=== PATIENT | male | born 1970 | race Caucasian/White ===

== ENCOUNTER 2021-03-09 13:16 | Emergency (ER) | payer OTHER ==
[2021-03-09 14:15] LABS: Absolute Lymphocytes (CBC) 3.1 K/uL (0.7-4.9); Basophils % 1.2 % (0-1.3); Hematocrit 40.5 % (39.6-49.0); Lymphocytes % 36.9 % (15.3-44.8); MPV 7.6 fL (7.6-11.3)
[2021-03-09 14:19] LABS: Protime INR 0.93
[2021-03-09] MEDS ORDERED: MECLIZINE HCL 12.5 MG TAB ONE (14:31)
[2021-03-09] MEDS ORDERED: NA CHLORIDE 0.9% 1,000 ML ONE (14:31)
[2021-03-09 14:33] LABS: ALT/SGPT 33 U/L (12-78); AST/SGOT 20 U/L (15-37); Albumin 4.3 g/dL (3.4-5.0); Alkaline Phosphatase 54 U/L (45-117); BUN Blood Urea Nitrogen 18 mg/dL (7-18); Bicarbonate 28 mmol/L (21-32); Bilirubin Direct 0.1 mg/dL (0-0.2); Bilirubin Total 0.5 mg/dL (0.2-1.0); Glucose Level 93 mg/dL (74-106); Magnesium 2.5 mg/dL (1.8-2.4); NT PRO-BNP 24 pg/mL (<125); Potassium 3.5 mmol/L (3.5-5.1); Protein, Total 7.6 g/dL (6.4-8.2); Sodium Level 142 mmol/L (136-145); Troponin (Emerg Dept Use Only) < 0.02 ng/mL (0.0-0.045)
--- NOTE | 2021-03-09 15:02 | RAD REPORT ---
EXAM DESCRIPTION: CT - CTHCSPWOC - 03/09/2021 2:33 pm CLINICAL HISTORY: dizziness COMPARISON: <Comparisons> TECHNIQUE: Axial 5 mm thick images of the head were obtained. Axial 2 mm thick images of the cervic al spine were obtained with sagittal and coronal reconstruction images generated and reviewed. All CT scans are performed using dose optimization technique as appropriate and may include automated exposure control or mA/KV adjustment according to patient size. FINDINGS: No intracranial hemorrhage, mass, edema or acute intracranial finding. No suspicion for ac brayan infarction. No extra-axial fluid collections. Mastoid air cells and paranasal sinuses are clear. No globe or orbit abnormality seen. Cervical body height and alignment are normal. No disk space narrowing. No fracture or acute bony abn ormality. Endplate spurring changes are present at C5-6 extending mildly into the exit foramina. No s ignificant canal or foramen stenosis suspected. Central canal detail is inherently limited. No paraspinal mass or hematoma. IMPRESSION: Negative CT head examination for acute or significant finding. Negative CT cervical spine examination for acute or significant finding. Mild cervical spine degener ative change present as detailed.
--- NOTE | 2021-03-09 15:12 | RAD REPORT ---
EXAM DESCRIPTION: RAD - Chest Single View - 03/09/2021 2:49 pm CLINICAL HISTORY: dizziness COMPARISON: May 2009 TECHNIQUE: AP portable chest image was obtained 03/09/2021 2:49 pm . FINDINGS: Lungs are clear. Heart size is upper normal to slightly enlarged. Pulmonary vasculature wi thin normal limits. No measurable pleural effusion and no pneumothorax. Pedicle screws and rods have been placed spanning the T8 level inferiorly to at least L2. Inferior margin of the hardware falls of f the field view. No acute aortic findings suspected. IMPRESSION: No acute cardiopulmonary process. Borderline to mild cardiomegaly is present without other findings that suggest failure or volume over load.
[2021-03-09] MEDS ORDERED: DIAZEPAM 10 MG/2 ML INJ SYRINGE ONE (16:22)
--- NOTE | 2021-03-09 16:59 | ER ---
Nurse's Notes [facility] Name: William Thorpe Age: 50 yrs Sex: Male : 1970 Arrival Date: 03/09/2021 Time: 13:23 Bed 13 Private MD: Diagnosis: Benign paroxysmal vertigo Presentation: 03/09 13:37 Chief complaint: Patient states: Episode of dizziness that occurred last night lasting ss 1-2 minutes. Pt states, "After that I got better, but I can't explain it, but I just didn't feel myself. I got home this morning and sat in bed and had another episode. I'm not dizzy anymore, but I still don't feel 100%. On Wednesday I was moving stuff and fell and hit my head hard, but didn't have any problems up until last night.". Coronavirus screen: Client denies travel out of the [place] in the last 14 days. Ebola Screen: Patient denies exposure to infectious person. Patient denies travel to an Ebola-affected area in the 21 days before illness onset. Initial Sepsis Screen: Does the patient meet any 2 criteria? No. Patient's initial sepsis screen is negative. Does the patient have a suspected source of infection? No. Patient's initial sepsis screen is negative. Risk Assessment: Do you want to hurt yourself or someone else? Patient reports no desire to harm self or others. Onset of symptoms was March 08, 2021. 13:37 Method Of Arrival: Ambulatory ss 13:37 Acuity: PALMER 3 ss Historical: - Allergies: 13:41 Paxil; ss - Home Meds: 13:41 None [Active]; ss - PMHx: 13:41 None; ss - PSHx: 13:41 back repair; R shoulder repair; ss - Immunization history:: Adult Immunizations up to date, Client reports receiving the 2nd dose of the Covid vaccine. - Social history:: Smoking status: Patient denies any tobacco usage or history of. Screenin:20 Abuse screen: Denies threats or abuse. Nutritional screening: No deficits noted. vg1 Tuberculosis screening: No symptoms or risk factors identified. Fall Risk Fall in past 12 months (25 points). No secondary diagnosis (0 pts). IV access (20 points). Ambulatory Aid- None/Bed Rest/Nurse Assist (0 pts). Gait- Normal/Bed Rest/Wheelchair (0 pts) Mental Status- Oriented to own ability (0 pts). Total Kenyon Fall Scale indicates No Risk (0-24 pts). Assessment: 14:19 General: Appears in no apparent distress. comfortable, Behavior is calm, cooperative. vg1 Pain: Denies pain. Neuro: Level of Consciousness is awake, alert, obeys commands, Oriented to person, place, time, situation, Denies blurred vision headache. Cardiovascular: Patient's skin is warm and dry. Respiratory: Airway is patent Respiratory effort is even, unlabored. GI: Reports nausea, Patient currently denies vomiting. : No signs and/or symptoms were reported regarding the genitourinary system. EENT: No signs and/or symptoms were reported regarding the EENT system. Derm: Skin is intact, is healthy with good turgor, Bruising that is bright red, on forehead. Musculoskeletal: Circulation, motion, and sensation intact. 15:39 Reassessment: Patient appears in no apparent distress at this time. Patient and/or vg1 family updated on plan of care and expected duration. Pain level reassessed. Patient is alert, oriented x 3, equal unlabored respirations, skin warm/dry/pink. Patient denies pain at this time. 17:11 Reassessment: Patient appears in no apparent distress at this time. Patient and/or vg1 family updated on plan of care and expected duration. Pain level reassessed. Patient is alert, oriented x 3, equal unlabored respirations, skin warm/dry/pink. Patient denies pain at this time. Vital Signs: 13:37 BP 161 / 102; Pulse 73; Resp 15; Temp 97.5(TE); Pulse Ox 99% on R/A; Weight 96.16 kg; ss Height 5 ft. 7 in. (170.18 cm); Pain 0/10; 14:20 BP 142 / 97; Pulse 62; Resp 16; Pulse Ox 100% on R/A; vg1 14:21 BP 148 / 96 Supine; Pulse 63; vg1 14:23 BP 159 / 98 Sitting; Pulse 65; vg1 14:25 BP 154 / 97 Standing; Pulse 75; vg1 15:39 BP 149 / 95; Pulse 70; Resp 14; Pulse Ox 100% on R/A; vg1 17:00 BP 138 / 96; Pulse 64; Resp 16; Pulse Ox 98% on R/A; vg1 13:37 Body Mass Index 33.20 (96.16 kg, 170.18 cm) ED Course: 13:23 Patient arrived in ED. ds1 13:41 Triage completed. ss 13:41 Arm band placed on right wrist. ss 13:44 Antonio Lancaster NP is PHCP. pm1 13:44 Stephy Vicente MD is Attending Physician. pm1 14:05 Initial lab(s) drawn, by ca, sent to lab. Inserted saline lock: 20 gauge in right dh3 antecubital area, using aseptic technique. Blood collected. 14:06 Denisha Morales, RN is Primary Nurse. vg1 14:20 Patient has correct armband on for positive identification. Bed in low position. Call vg1 light in reach. Side rails up X 1. 14:24 EKG done, by ED staff, reviewed by Antonio Lancaster NP. 3 14:33 CT Head C Spine In Process Unspecified. EDMS 14:49 XRAY Chest (1 view) In Process Unspecified. EDMS 17:12 No provider procedures requiring assistance completed. IV discontinued, intact, vg1 bleeding controlled, No redness/swelling at site. Pressure dressing applied. Administered Medications: 14:15 Drug: NS 0.9% 1000 ml Route: IV; Rate: 1000 ml; Site: right antecubital; vg1 15:43 Follow up: IV Status: Completed infusion; IV Intake: 1000ml vg1 14:17 Drug: Meclizine 50 mg Route: PO; vg1 15:44 Follow up: Response: No adverse reaction vg1 16:08 Drug: Valium (diazepam) 5 mg Route: IVP; Site: right antecubital; vg1 17:11 Follow up: Response: No adverse reaction vg1 Intake: 15:43 IV: 1000ml; Total: 1000ml. vg1 Outcome: 16:58 Discharge ordered by . pm1 17:16 Discharged to home ambulatory. vg1 17:16 Condition: stable 17:16 Discharge instructions given to patient, Instructed on discharge instructions, follow up and referral plans. medication usage, Demonstrated understanding of instructions, follow-up care, medications, Prescriptions given X 2. 17:16 Patient left the ED. vg1 Signatures: Dispatcher [employer] Vero Victoria ds1 Sandra Leger RN RN ss Antonio Lancaster, COMMUNITY HEALTH NURSE SUPERVISOR COMMUNITY HEALTH NURSE SUPERVISOR pm1 Katerin Bernal 3 Denisha Morales RN RN vg1 Corrections: (The following items were deleted from the chart) 14:29 14:19 Neuro: Level of Consciousness is awake, alert, obeys commands, Oriented to vg1 person, place, time, situation, vg1
--- NOTE | 2021-03-09 16:59 | EDPHYS ---
Physician Documentation [facility] Name: William Thorpe Age: 50 yrs Sex: Male : 1970 Arrival Date: 03/09/2021 Time: 13:23 Bed 13 Private MD: ED Physician Stephy Vicente HPI: 03/09 13:56 This 50 yrs old Male presents to ER via Ambulatory with complaints of pm1 Dizziness. 13:56 The patient presents with vertigo. Onset: The symptoms/episode began/occurred 2 day(s) pm1 ago. Context: occurred at home, occurred while the patient was Changing position. just prior to the episode the patient experienced no apparent symptoms. Modifying factors: The symptoms are alleviated by holding head still, putting hands out, the symptoms are aggravated by changing position. Associated signs and symptoms: Pertinent positives: head injury, 4 days ago, Pertinent negatives: abdominal pain, chest pain, headache, numbness, shortness of breath, tingling. Severity of symptoms: in the emergency department the symptoms have improved. Patient's baseline: Neuro: alert and fully oriented, Motor: no deficits, Ambulation: walks without assistance, Speech: normal. The patient has not experienced similar symptoms in the past. The patient has not recently seen a physician. Historical: - Allergies: 13:41 Paxil; ss - Home Meds: 13:41 None [Active]; ss - PMHx: 13:41 None; ss - PSHx: 13:41 back repair; R shoulder repair; ss - Immunization history:: Adult Immunizations up to date, Client reports receiving the 2nd dose of the Covid vaccine. - Social history:: Smoking status: Patient denies any tobacco usage or history of. ROS: 13:56 Constitutional: Negative for fever, chills, and weight loss. pm1 13:56 Eyes: Negative for injury, pain, redness, and discharge, ENT: Negative for injury, pain, and discharge, Neck: Negative for injury, pain, and swelling, Cardiovascular: Negative for chest pain, palpitations, and edema, Respiratory: Negative for shortness of breath, cough, wheezing, and pleuritic chest pain, Abdomen/GI: Negative for abdominal pain, nausea, vomiting, diarrhea, and constipation, Back: Negative for injury and pain, MS/Extremity: Negative for injury and deformity, Skin: Negative for injury, rash, and discoloration. 13:56 Neuro: Positive for dizziness, Negative for headache, numbness, tingling. Exam: 14:36 Constitutional: This is a well developed, well nourished patient who is awake, alert, pm1 and in no acute distress. Head/Face: Normocephalic, atraumatic. 14:36 Back: No spinal tenderness. No costovertebral tenderness. Full range of motion. Skin: Warm, dry with normal turgor. Normal color with no rashes, no lesions, and no evidence of cellulitis. MS/ Extremity: Pulses equal, no cyanosis. Neurovascular intact. Full, normal range of motion. 14:36 Eyes: Exam is negative for acute changes, Periorbital structures: appear normal, Pupils: no acute changes, Extraocular movements: no acute changes, Conjunctiva: normal, Nystagmus: present looking rightwards. 14:36 ENT: Mouth: no acute changes, Lips: normal, Oral mucosa: normal, pink and intact, moist. 14:36 Cardiovascular: Exam negative for acute changes, Rate: normal, Rhythm: regular, Pulses: no pulse deficits are appreciated, Heart sounds: normal, normal S1and S2. 14:36 Respiratory: Exam negative for acute changes, respiratory distress, shortness of breath, Breath sounds: are clear throughout. 14:36 Abdomen/GI: Inspection: abdomen appears normal, Palpation: abdomen is soft and non-tender, in all quadrants. 14:36 Neuro: Exam negative for acute changes, Orientation: is normal, Mentation: is normal, Motor: moves all fours, strength is normal, strength is 5/5 in all extremities, Sensation: is normal, no obvious gross deficits. Vital Signs: 13:37 BP 161 / 102; Pulse 73; Resp 15; Temp 97.5(TE); Pulse Ox 99% on R/A; Weight 96.16 kg; ss Height 5 ft. 7 in. (170.18 cm); Pain 0/10; 14:20 BP 142 / 97; Pulse 62; Resp 16; Pulse Ox 100% on R/A; vg1 14:21 BP 148 / 96 Supine; Pulse 63; vg1 14:23 BP 159 / 98 Sitting; Pulse 65; vg1 14:25 BP 154 / 97 Standing; Pulse 75; vg1 15:39 BP 149 / 95; Pulse 70; Resp 14; Pulse Ox 100% on R/A; vg1 17:00 BP 138 / 96; Pulse 64; Resp 16; Pulse Ox 98% on R/A; vg1 13:37 Body Mass Index 33.20 (96.16 kg, 170.18 cm) ss MDM: 13:45 Patient medically screened. pm1 16:57 Data reviewed: vital signs. Data interpreted: Pulse oximetry: on room air is 100 %. pm1 Counseling: I had a detailed discussion with the patient and/or guardian regarding: the historical points, exam findings, and any diagnostic results supporting the discharge/admit diagnosis, lab results, radiology results, the need for outpatient follow up, to return to the emergency department if symptoms worsen or persist or if there are any questions or concerns that arise at home. 16:57 ED course: Patient reports improvement with Harjit márquez. pm1 03/09 13:54 Order name: Basic Metabolic Panel; Complete Time: 14:42 pm03/09 13:54 Order name: CBC with Diff; Complete Time: 14:20 pm03/09 13:54 Order name: LFT's; Complete Time: 14:42 pm03/09 13:54 Order name: Magnesium; Complete Time: 14:42 pm03/09 13:54 Order name: NT PRO-BNP; Complete Time: 14:42 pm03/09 13:54 Order name: PT-INR; Complete Time: 14:27 pm03/09 13:54 Order name: Troponin (emerg Dept Use Only); Complete Time: 14:42 pm03/09 13:54 Order name: XRAY Chest (1 view); Complete Time: 15:40 pm03/09 13:54 Order name: EKG; Complete Time: 13:55 pm03/09 13:54 Order name: Cardiac monitoring; Complete Time: 14:18 pm03/09 13:54 Order name: CT Head C Spine; Complete Time: 15:05 pm03/09 13:54 Order name: EKG - Nurse/Tech; Complete Time: 14:18 pm03/09 13:54 Order name: IV Saline Lock; Complete Time: 14:12 pm03/09 13:54 Order name: Labs collected and sent; Complete Time: 14:12 pm03/09 13:54 Order name: O2 Per Protocol; Complete Time: 14:08 pm1 03/09 13:54 Order name: O2 Sat Monitoring; Complete Time: 14:08 pm1 03/09 13:54 Order name: Orthostatic Blood Pressure; Complete Time: 14:29 pm1 Administered Medications: 14:15 Drug: NS 0.9% 1000 ml Route: IV; Rate: 1000 ml; Site: right antecubital; vg1 15:43 Follow up: IV Status: Completed infusion; IV Intake: 1000ml vg1 14:17 Drug: Meclizine 50 mg Route: PO; vg1 15:44 Follow up: Response: No adverse reaction vg1 16:08 Drug: Valium (diazepam) 5 mg Route: IVP; Site: right antecubital; vg1 17:11 Follow up: Response: No adverse reaction vg1 Disposition: 03/09/21 16:58 Discharged to Home. Impression: Benign paroxysmal vertigo. - Condition is Stable. - Discharge Instructions: Benign Positional Vertigo. - Prescriptions for Meclizine 25 mg Oral Tablet - take 1 tablet by ORAL route every 8 hours As needed; 30 tablet. Valium 2 mg Oral Tablet - take 1 tablet by ORAL route every 8 hours As needed; 20 tablet. - Medication Reconciliation Form, Thank You Letter, Antibiotic Education, Prescription Opioid Use form. - Follow up: Emergency Department; When: As needed; Reason: Worsening of condition. Follow up: Private Physician; When: 2 - 3 days; Reason: Recheck today's complaints, Continuance of care, Re-evaluation by your physician. - Problem is new. - Symptoms have improved. Signatures: Dispatcher [employer] EDMI Sandra Leger RN RN ss Antonio Lancaster NP WAGE ADJUSTER pm1 Denisha Morales RN RN vg1 Corrections: (The following items were deleted from the chart) 17:16 16:58 03/09/2021 16:58 Discharged to Home. Impression: Benign paroxysmal vertigo. vg1 Condition is Stable. Forms are Medication Reconciliation Form, Thank You Letter, Antibiotic Education, Prescription Opioid Use. Follow up: Emergency Department; When: As needed; Reason: Worsening of condition. Follow up: Private Physician; When: 2 - 3 days; Reason: Recheck today's complaints, Continuance of care, Re-evaluation by your physician. Problem is new. Symptoms have improved. pm1
[2021-03-09 17:24] VITALS: TEMP 97.5
[2021-03-09 17:32] VITALS: BP 138/96; O2SAT 98
--- NOTE | 2021-03-10 08:24 | EKG ---
Test Date: 2021-03-09 Test Time: 14:16:15 Bundle Tier: LINDY MEASUREMENT RESULTS: Intervals: Rate: 63 NV: 174 QRSD: 96 QT: 418 QTc: 427 [place]: P: 36 NV: 174 QRS: -3 T: 16 INTERPRETIVE STATEMENTS: Normal sinus rhythm Voltage criteria for left ventricular hypertrophy Abnormal ECG Compared to ECG 05/28/2009 08:04:18 Left ventricular hypertrophy now present Electronically Signed On 03-10-21 08:23:06 CDT by Richie Herrmann
== END 2021-03-09 17:16 | disposition home or self-care (01) ==
LOC: ER 13:16
DX: H81.10 Benign paroxysmal vertigo, unspecified ear (principal); Z88.8 Allergy status to other drugs, medicaments and biological substances
CPT/HCPCS: 93005; 85025; 80048; 36415; 83735; 85610; 80076; 84484; 83880; 70450; 72125; 71045; J3360; J7030